=== PATIENT | male | born 1960 | race Caucasian/White ===

== ENCOUNTER → 2016-08-30 | Outpatient (CLI) | payer MEDICARE ==
[~2016-08-30] MED LIST: ACARBOSE100 MG PO; ASPIR-TRIN325 MG PO; CYMBALTA60 MG PO; DIOVAN40 MG PO; FENOFIBRATE160 MG PO; IBUPROFEN400 MG PO; LEVEMIR100 UNIT/1 SQ; LOPRESSOR 25 MG25 MG PO; LORTAB 7.5-3251 EACH PO; LYRICA50 MG PO; METFORMIN HCL1000 MG PO; NOVOLOG FL100 UNIT/1 SC; OMEPRAZOLE20 M1 PO; SIMVASTATIN40 MG PO
== END ==
LOC: RAD 10:16
DX: M25.512 Pain in left shoulder (principal); M51.9 Unspecified thoracic, thoracolumbar and lumbosacral intervertebral disc disorder; M47.812 Spondylosis without myelopathy or radiculopathy, cervical region; M51.34 Other intervertebral disc degeneration, thoracic region; M25.78 Osteophyte, vertebrae; M47.816 Spondylosis without myelopathy or radiculopathy, lumbar region
CPT/HCPCS: 72050; 72072; 72110; 73030

== ENCOUNTER 2016-11-27 13:40 | Inpatient (IN) | payer MEDICARE ==
[~2016-11-27] VITALS: Ht 182.9 cm; Wt 119.7 kg
[2016-11-27 14:47] LABS: HEMOGLOBIN 11.6 gm/dl (14.0-17.5); RED BLOOD COUNT 4.14 M/UL (4.20-5.50); WHITE BLOOD COUNT 17.8 K/UL (4.5-11.0)
[2016-11-27 15:06] LABS: BUN/CREATININE RATIO 14 (0-10)
[2016-11-27] MEDS ORDERED: SIMVASTATIN40 MG PO (19:08)
[2016-11-27] MEDS ORDERED: METFORMIN HCL1000 MG PO (19:09)
[2016-11-27] MEDS ORDERED: DIOVAN40 MG PO (19:09)
[2016-11-27] MEDS ORDERED: ACARBOSE100 MG PO (19:10)
[2016-11-27] MEDS ORDERED: CYMBALTA60 MG PO (19:10)
[2016-11-27] MEDS ORDERED: LORTAB 7.5-3251 EACH PO (19:11)
[2016-11-27] MEDS ORDERED: LYRICA50 MG PO (19:11)
[2016-11-27] MEDS ORDERED: OMEPRAZOLE20 M1 PO (19:12)
[2016-11-27] MEDS ORDERED: IBUPROFEN400 MG PO (19:12)
[2016-11-27] MEDS ORDERED: ASPIR-TRIN325 MG PO (19:13)
[2016-11-27] MEDS ORDERED: FENOFIBRATE160 MG PO (19:13)
[2016-11-27] MEDS ORDERED: LEVEMIR100 UNIT/1 SQ (19:14)
[2016-11-27] MEDS ORDERED: LOPRESSOR 25 MG25 MG PO (19:15)
[2016-11-27] MEDS ORDERED: NOVOLOG FL100 UNIT/1 SC (19:16)
--- NOTE | 2016-11-27 19:49 | NUR ---
NOTIFIED DR BAUTISTA OF CONSULT WRITTEN BY DR MARTÍNEZ. DR BAUTISTA STATES THAT "IF PATIENT'S WOUND IS ON THE FOOT OR ANKLE AT ALL , YOU DONT NEED TO CONSULT ME, CONSULT ORTHO OR PODIATRY."
--- NOTE | 2016-11-27 19:54 | NUR ---
NOTIFIED DR VIERA (ORTHO) OF PATIENT CONSULT, STATES TO NOTIFY IN PODIATRY IN THE AM WITH DR KIRAN.
[2016-11-28 06:38] LABS: HEMOGLOBIN 10.6 gm/dl (14.0-17.5); RED BLOOD COUNT 3.76 M/UL (4.20-5.50); WHITE BLOOD COUNT 15.4 K/UL (4.5-11.0)
[2016-11-28 06:51] LABS: BUN/CREATININE RATIO 18 (0-10)
[2016-11-29 05:22] LABS: HEMOGLOBIN 10.3 gm/dl (14.0-17.5); RED BLOOD COUNT 3.66 M/UL (4.20-5.50)
[2016-11-29 05:47] LABS: BUN/CREATININE RATIO 17 (0-10)
[2016-11-30 05:40] LABS: HEMOGLOBIN 9.8 gm/dl (14.0-17.5); RED BLOOD COUNT 3.56 M/UL (4.20-5.50); WHITE BLOOD COUNT 12.1 K/UL (4.5-11.0)
[2016-11-30 06:10] LABS: BUN/CREATININE RATIO 15 (0-10)
[2016-12-01 04:42] LABS: HEMOGLOBIN 9.5 gm/dl (14.0-17.5); RED BLOOD COUNT 3.47 M/UL (4.20-5.50); WHITE BLOOD COUNT 12.1 K/UL (4.5-11.0)
[2016-12-01 05:18] LABS: BUN/CREATININE RATIO 16 (0-10)
[2016-12-02 05:56] LABS: HEMOGLOBIN 9.9 gm/dl (14.0-17.5); WHITE BLOOD COUNT 10.6 K/UL (4.5-11.0)
[2016-12-02 06:08] LABS: BUN/CREATININE RATIO 15 (0-10)
[2016-12-03 05:23] LABS: HEMOGLOBIN 9.3 gm/dl (14.0-17.5); RED BLOOD COUNT 3.4 M/UL (4.20-5.50); WHITE BLOOD COUNT 8.7 K/UL (4.5-11.0)
[2016-12-03 05:34] LABS: BUN/CREATININE RATIO 14 (0-10)
[2016-12-04 05:05] LABS: HEMOGLOBIN 9.4 gm/dl (14.0-17.5); RED BLOOD COUNT 3.5 M/UL (4.20-5.50)
[2016-12-04 05:30] LABS: BUN/CREATININE RATIO 13 (0-10)
[2016-12-05 05:07] LABS: HEMOGLOBIN 9.8 gm/dl (14.0-17.5); RED BLOOD COUNT 3.66 M/UL (4.20-5.50)
[2016-12-05 05:10] LABS: WHITE BLOOD COUNT 9.2 K/UL (4.5-11.0)
[2016-12-05 05:12] LABS: BUN/CREATININE RATIO 10 (0-10)
--- NOTE | 2016-12-05 14:20 | NUR ---
SPOKEN TO ADMISSION NURSE AT [facility] AND SHE REQUESTED NOT TO PERFORM WOUND CARE D/T PICTURES WILL BE TAKEN AND THAT SHE WILL PERFORM WOUND CARE WHEN PATIENT ADMITTED TO THEIR SERVICES
== END 2016-12-05 15:18 | disposition other institution (70) | DRG 854 ==
LOC: ER1 13:40 → PROG CARE 16:17 → ZEROF 16:17 → PROG CARE 17:28 → M/S 17:28 → PROG CARE 19:45 → M/S 11-28 20:05
PROVIDERS: Emergency Medicine; Internal Medicine; Physician Assistant; Physician Assistant Medical; Podiatrist Foot & Ankle Surgery; ADMIT Internal Medicine
PROC: B41D1ZZ Fluoroscopy of Aorta and Bilateral Lower Extremity Arteries using Low Osmolar Contrast (ICD-10-PCS; 2016-11-30)
PROC: 0JBQ0ZZ Excision of Right Foot Subcutaneous Tissue and Fascia, Open Approach (ICD-10-PCS; principal; 2016-12-01 13:15)
PROC: 0JBQ0ZZ Excision of Right Foot Subcutaneous Tissue and Fascia, Open Approach (ICD-10-PCS; 2016-12-04)
PROC: 3E0234Z Introduction of Serum, Toxoid and Vaccine into Muscle, Percutaneous Approach (ICD-10-PCS; 2016-12-05)
DX: A41.9 Sepsis, unspecified organism (principal); L03.115 Cellulitis of right lower limb; E87.1 Hypo-osmolality and hyponatremia; M00.9 Pyogenic arthritis, unspecified; L97.319 Non-pressure chronic ulcer of right ankle with unspecified severity; L02.415 Cutaneous abscess of right lower limb; L97.519 Non-pressure chronic ulcer of other part of right foot with unspecified severity; S92.501A Displaced unspecified fracture of right lesser toe(s), initial encounter for closed fracture; I70.233 Atherosclerosis of native arteries of right leg with ulceration of ankle; I70.235 Atherosclerosis of native arteries of right leg with ulceration of other part of foot; B95.62 Methicillin resistant Staphylococcus aureus infection as the cause of diseases classified elsewhere; E11.65 Type 2 diabetes mellitus with hyperglycemia; E11.42 Type 2 diabetes mellitus with diabetic polyneuropathy; T25.0 Burn of unspecified degree of ankle and foot; T31.0 Burns involving less than 10% of body surface; V00-Y99 External causes of morbidity; Y93.I9 Activity, other involving external motion; Y92.007 Garden or yard of unspecified non-institutional (private) residence as the place of occurrence of the external cause; I25.10 Atherosclerotic heart disease of native coronary artery without angina pectoris; R51 Headache; R00.0 Tachycardia, unspecified; I10 Essential (primary) hypertension; E78.5 Hyperlipidemia, unspecified; Z91.81 History of falling; M25.562 Pain in left knee; K21.9 Gastro-esophageal reflux disease without esophagitis; Z68.35 Body mass index [BMI] 35.0-35.9, adult; Z82.49 Family history of ischemic heart disease and other diseases of the circulatory system; Z83.3 Family history of diabetes mellitus; Z88.0 Allergy status to penicillin; Z79.4 Long term (current) use of insulin; Z72.3 Lack of physical exercise; Z23 Encounter for immunization
CPT/HCPCS: 36200; 36221; 36415; 70450; 71010; 73560; 73610; 73630; 75630; 80048; 80053; 80202; 82009; 82550; 82553; 82728; 82803; 82962; 83036; 83540; 83550; 83605; 83735; 83874; 84132; 84443; 84484; 85025; 85027; 85610; 86140; 87040; 87070; 87077; 87186; 87205; 93005; 93926; 93971; C1894; G0008; J1644; J1650; J1815; J1885; J2185; J2250; J2405; J2795; J3010; J3370; J7030; J7040; J7050; J7070; J7120; Q2039; Q9965

== ENCOUNTER 2020-03-27 19:42 | Observation (INO) | payer MEDICARE ==
[~2020-03-27] VITALS: Ht 180.3 cm; Wt 116.1 kg
[~2020-03-27 19:42] MED LIST changes: +ABILIFY 2 MG TAB2 MG PO; +AMLODIPINE BESYL5 MG PO; +ANCEF 1 GM IV AD1 GM IV; +ASPIR-LOW81 MG PO; +ASPIRIN 325MG325 MG PO; +ATORVASTATIN CA20 MG PO; +BENICAR20 MG PO; +CRESTOR 10 MG T10 MG PO; +CRESTOR20 MG PO; +CYCLOBENZAPRINE10 MG PO; +DULCOLAX5 MG PO; +FERROUS SULFAT325 M2 PO; +FLOMAX 0.4 MG0.4 MG PO; +HYDROCODON-ACE1 EAC2 PO; +LANTUS INS100 UTS/M1 SQ; +LEVEMIR 10100 UNITS/ SC; +LOPRESSOR 50 MG50 MG PO; +LOPRESSOR50 MG PO; +LORTAB 5-325 M1 EACH PO; +NEURONTIN 300300 MG PO; +NEURONTIN600 MG PO; +NORCO 7.5-3251 EACH PO; +OZEMPIC0.25 MG/0. SQ; +PHENERGAN 12.12.5 M1 PO; +POLYETHYLENE GL17 GM PO; +PROSCAR5 MG PO; +REMERON15 MG PO; +SANTYL OINT 3030 GM TOP; +THERAGRAN M TAB1 EA PO; +TRESIBA FL100 UNIT/1 SC; +TRESIBA FL100 UNIT/1 SQ; +VITAMIN B-12100 MCG PO; +XIGDUO XR 5 MG1 EACH PO
[2020-03-27 20:25] LABS: HEMOGLOBIN 11.2 gm/dl (14.0-17.5); RED BLOOD COUNT 4.05 M/UL (4.20-5.50); WHITE BLOOD COUNT 6.7 K/UL (4.5-11.0)
[2020-03-27 21:31] LABS: BUN/CREATININE RATIO 10 (0-10)
[2020-03-28] MEDS ORDERED: CRESTOR20 MG PO (02:26)
[2020-03-28] MEDS ORDERED: FAMOTIDINE20 MG PO (02:27)
[2020-04-02] MEDS ORDERED: HYDROCODON-ACE1 EAC2 PO (15:07)
[2020-04-02] MEDS ORDERED: NEURONTIN600 MG PO (15:07)
[2020-04-02] MEDS ORDERED: LOPRESSOR50 MG PO (15:41)
== END 2020-04-02 16:57 | disposition home or self-care (01) ==
LOC: ER1 19:42 → MED SURG 4 03-28 02:04 → CDU 03-28 02:04 → MED SURG 4 03-28 03:49
PROVIDERS: Family Medicine; Internal Medicine; Physician Assistant; Physician Assistant Medical; ADMIT Internal Medicine
DX: R11.2 Nausea with vomiting, unspecified (principal); E87.6 Hypokalemia; R41.82 Altered mental status, unspecified; I13.0 Hypertensive heart and chronic kidney disease with heart failure and stage 1 through stage 4 chronic kidney disease, or unspecified chronic kidney disease; I50.32 Chronic diastolic (congestive) heart failure; N18.30 Chronic kidney disease, stage 3 unspecified; E11.40 Type 2 diabetes mellitus with diabetic neuropathy, unspecified; D63.1 Anemia in chronic kidney disease; N40.0 Benign prostatic hyperplasia without lower urinary tract symptoms; Z99.3 Dependence on wheelchair; Z88.0 Allergy status to penicillin; Z86.73 Personal history of transient ischemic attack (TIA), and cerebral infarction without residual deficits; Z20.822 Contact with and (suspected) exposure to COVID-19
CPT/HCPCS: 36415; 36600; 70450; 71045; 80048; 80053; 80307; 81001; 82140; 82550; 82553; 82803; 82962; 83735; 83874; 83880; 84132; 84484; 85025; 85610; 86140; 93005; 96372; 96374; 96375; 96376; 97110; 97110-GP-CQ; 97116-GP-CQ; 97162; 97166; 97530-GP-CQ; 99285; C9113; G0378; G0480; Q9967; U0002

== ENCOUNTER 2020-06-23 10:03 | Emergency (ER) | payer MEDICARE ==
[~2020-06-23 10:03] MED LIST changes: +FAMOTIDINE20 MG PO
== END 2020-06-23 15:15 | disposition home or self-care (01) ==
LOC: ER1 10:03
DX: Z04.3 Encounter for examination and observation following other accident (principal); E78.5 Hyperlipidemia, unspecified; I12.9 Hypertensive chronic kidney disease with stage 1 through stage 4 chronic kidney disease, or unspecified chronic kidney disease; E11.22 Type 2 diabetes mellitus with diabetic chronic kidney disease; N18.9 Chronic kidney disease, unspecified; Z86.73 Personal history of transient ischemic attack (TIA), and cerebral infarction without residual deficits; Z88.0 Allergy status to penicillin; W19.XXXA Unspecified fall, initial encounter
CPT/HCPCS: 99284

== ENCOUNTER 2020-06-24 12:54 | Observation (INO) | payer MEDICARE ==
[~2020-06-24] VITALS: Ht 182.9 cm; Wt 112.9 kg
[2020-06-24 14:03] LABS: HEMOGLOBIN 13.3 gm/dl (14.0-17.5); RED BLOOD COUNT 4.66 M/UL (4.20-5.50); WHITE BLOOD COUNT 9.4 K/UL (4.5-11.0)
[2020-06-24 14:20] LABS: BUN/CREATININE RATIO 14 (0-10)
[2020-06-25] MEDS ORDERED: TRESIBA FL100 UNIT/1 SQ (17:24)
[2020-06-25] MEDS ORDERED: HYDROCODON-ACE1 EAC2 PO (17:24)
[2020-06-25] MEDS ORDERED: HUMALOG 10100 UNITS/ SC (17:24)
[2020-06-25] MEDS ORDERED: NEURONTIN600 MG PO (17:24)
--- NOTE | 2020-06-28 16:07 | NUR ---
PATIENT REPEATEDLY ASKS TO SEE FAMILY. RN REINFORCED TEACHING BY EXPLAINING TO PATIENT THAT HIS PRECAUTIONS WERE FOR HIS SAFETY.
[2020-06-29 06:04] LABS: RED BLOOD COUNT 3.93 M/UL (4.20-5.50)
[2020-06-29 06:16] LABS: HEMOGLOBIN 10.9 gm/dl (14.0-17.5)
--- NOTE | 2020-06-30 10:56 | NUR ---
PATIENT ON 1:1 SITTER
--- NOTE | 2020-06-30 13:38 | NUR ---
[facility] EVALUATION DONE AND WILL CALL BACK OF THE RESULT OF THE EVALUATION.
[2020-06-30] MEDS ORDERED: MACROBID 100 M100 MG PO (14:29)
== END 2020-06-30 17:55 | disposition home or self-care (01) ==
LOC: ER1 12:54 → M/S 21:55 → CDU 21:55 → M/S 06-25 14:11
PROVIDERS: Internal Medicine; Physician Assistant; ADMIT Internal Medicine
DX: F32.9 Major depressive disorder, single episode, unspecified (principal); R45.851 Suicidal ideations; F41.9 Anxiety disorder, unspecified; N30.00 Acute cystitis without hematuria; I11.0 Hypertensive heart disease with heart failure; I50.22 Chronic systolic (congestive) heart failure; E11.9 Type 2 diabetes mellitus without complications; R77.8 Other specified abnormalities of plasma proteins; N40.0 Benign prostatic hyperplasia without lower urinary tract symptoms; E78.5 Hyperlipidemia, unspecified; Z20.822 Contact with and (suspected) exposure to COVID-19; Z91.5 Personal history of self-harm; Z79.4 Long term (current) use of insulin; Z79.899 Other long term (current) drug therapy; Z79.82 Long term (current) use of aspirin; Z99.3 Dependence on wheelchair; Z86.73 Personal history of transient ischemic attack (TIA), and cerebral infarction without residual deficits; Z88.0 Allergy status to penicillin
CPT/HCPCS: 36415; 70450; 80048; 80053; 80307; 81001; 82962; 85025; 85027; 87077; 87086; 87186; 94760; 96365; 96372; 96375; 96376; 99285; G0378; G0480; J0696; J1650; J3370; J7070; U0002

== ENCOUNTER 2020-07-02 20:16 | Emergency (ER) | payer MEDICARE ==
[~2020-07-02] VITALS: Ht 182.9 cm; Wt 112.9 kg
[~2020-07-02 20:16] MED LIST changes: +HUMALOG 10100 UNITS/ SC; +MACROBID 100 M100 MG PO
[2020-07-02 20:44] LABS: HEMOGLOBIN 12.2 gm/dl (14.0-17.5); RED BLOOD COUNT 4.38 M/UL (4.20-5.50); WHITE BLOOD COUNT 7.4 K/UL (4.5-11.0)
== END 2020-07-04 13:24 | disposition short-term general hospital (02) ==
LOC: ER1 20:16
PROVIDERS: Physician Assistant
DX: R45.851 Suicidal ideations (principal); E11.65 Type 2 diabetes mellitus with hyperglycemia; E78.5 Hyperlipidemia, unspecified; I25.10 Atherosclerotic heart disease of native coronary artery without angina pectoris; Z88.0 Allergy status to penicillin; Z86.73 Personal history of transient ischemic attack (TIA), and cerebral infarction without residual deficits; Z20.822 Contact with and (suspected) exposure to COVID-19
CPT/HCPCS: 0240U; 71045; 80053; 80307; 81001; 82962; 85025; 93005; 96374; 96375; 99285; G0480

== ENCOUNTER 2020-07-13 17:28 | Emergency (ER) | payer MEDICARE | END 2020-07-14 08:45 | disposition home or self-care (01) | LOC: ER1 17:28 | DX: Z02.2 Encounter for examination for admission to residential institution (principal) | CPT/HCPCS: 93005; 99284 ==

== ENCOUNTER 2020-08-15 16:53 | Emergency (ER) | payer MEDICARE ==
[~2020-08-15] VITALS: Ht 182.9 cm; Wt 110.2 kg
[2020-08-15 17:46] LABS: HEMOGLOBIN 12.5 gm/dl (14.0-17.5); RED BLOOD COUNT 4.33 M/UL (4.20-5.50); WHITE BLOOD COUNT 7.7 K/UL (4.5-11.0)
[2020-08-15 18:11] LABS: BUN/CREATININE RATIO 9 (0-10)
[2020-08-17 20:05] LABS: HEMOGLOBIN 11.9 gm/dl (14.0-17.5); RED BLOOD COUNT 4.19 M/UL (4.20-5.50); WHITE BLOOD COUNT 8.2 K/UL (4.5-11.0)
== END 2020-08-19 13:00 | disposition short-term general hospital (02) ==
LOC: ER1 16:53
PROVIDERS: Emergency Medicine; Family Medicine
DX: R45.851 Suicidal ideations (principal); I12.9 Hypertensive chronic kidney disease with stage 1 through stage 4 chronic kidney disease, or unspecified chronic kidney disease; N18.9 Chronic kidney disease, unspecified; E11.22 Type 2 diabetes mellitus with diabetic chronic kidney disease; Z20.822 Contact with and (suspected) exposure to COVID-19
CPT/HCPCS: 80053; 80061; 80307; 81001; 82550; 82553; 82962; 83735; 83874; 84484; 85025; 85610; 85730; 93005; 97162; 99285; G0480; U0002

== ENCOUNTER 2020-10-12 12:52 | Emergency (ER) | payer MEDICARE ==
[2020-10-12 14:14] LABS: HEMOGLOBIN 12.8 gm/dl (14.0-17.5); RED BLOOD COUNT 4.43 M/UL (4.20-5.50); WHITE BLOOD COUNT 10.6 K/UL (4.5-11.0)
== END 2020-10-12 23:09 | disposition home or self-care (01) ==
LOC: ER1 12:52
PROVIDERS: Emergency Medicine
DX: E11.65 Type 2 diabetes mellitus with hyperglycemia (principal); I10 Essential (primary) hypertension; Z88.0 Allergy status to penicillin; Z91.14 Patient's other noncompliance with medication regimen
CPT/HCPCS: 80053; 81001; 82009; 82962; 83690; 83735; 85025; 99284

== ENCOUNTER 2020-12-07 17:52 | Inpatient (IN) | payer OTHER, MEDICARE ==
[~2020-12-07] VITALS: Ht 182.9 cm; Wt 104.3 kg
[2020-12-07 18:23] LABS: HEMOGLOBIN 12.5 gm/dl (14.0-17.5); RED BLOOD COUNT 4.34 M/UL (4.20-5.50); WHITE BLOOD COUNT 8.8 K/UL (4.5-11.0)
[2020-12-07] MEDS ORDERED: NORVASC10 MG PO (23:15)
[2020-12-07] MEDS ORDERED: ZOLOFT100 MG PO (23:15)
[2020-12-07] MEDS ORDERED: LOPRESSOR 25 MG25 MG PO (23:16)
[2020-12-08 08:02] LABS: HEMOGLOBIN 12.1 gm/dl (14.0-17.5); RED BLOOD COUNT 4.21 M/UL (4.20-5.50); WHITE BLOOD COUNT 10.3 K/UL (4.5-11.0)
[2020-12-09 03:30] LABS: RED BLOOD COUNT 3.87 M/UL (4.20-5.50); WHITE BLOOD COUNT 10.7 K/UL (4.5-11.0)
--- NOTE | 2020-12-09 04:41 | NUR ---
PT UNABLE TO VOID. NOTIFIED DR YI . RECIEVED ORDERS. STRAIGHT CATHED PT ORDERED RECIEVED 700ML IN UOP. WILL CONTINUE TO MONITOR.
--- NOTE | 2020-12-09 16:13 | NUR ---
1518 - RN PERFORMED BLADDER SCAN ONPATIENT D/T PATIENT STATING THAT HE MUST BE STRAIGHT CATHED IN ORDER TO VOID AT TIMES. BLADDER SCAN REVEALED ONLY 90 ML OF URINE IN BLADDER. PATIENT WAS ALSO INCONT. OF URINE AT APPROXIMATELY 1245.
[2020-12-10 07:11] LABS: WHITE BLOOD COUNT 8.8 K/UL (4.5-11.0)
[2020-12-10 07:15] LABS: HEMOGLOBIN 8.4 gm/dl (14.0-17.5)
[2020-12-10 12:12] LABS: HEMOGLOBIN 8.5 gm/dl (14.0-17.5)
[2020-12-10 16:43] LABS: HEMOGLOBIN 8.6 gm/dl (14.0-17.5)
[2020-12-10 22:57] LABS: HEMOGLOBIN 8.9 gm/dl (14.0-17.5)
[2020-12-11 06:55] LABS: HEMOGLOBIN 8.7 gm/dl (14.0-17.5); RED BLOOD COUNT 3.05 M/UL (4.20-5.50)
[2020-12-12 05:50] LABS: HEMOGLOBIN 8.1 gm/dl (14.0-17.5); RED BLOOD COUNT 2.89 M/UL (4.20-5.50); WHITE BLOOD COUNT 7.7 K/UL (4.5-11.0)
[2020-12-13 06:50] LABS: HEMOGLOBIN 8.4 gm/dl (14.0-17.5); RED BLOOD COUNT 2.95 M/UL (4.20-5.50); WHITE BLOOD COUNT 8.3 K/UL (4.5-11.0)
[2020-12-14 06:30] LABS: RED BLOOD COUNT 2.86 M/UL (4.20-5.50); WHITE BLOOD COUNT 8.4 K/UL (4.5-11.0)
[2020-12-15 06:22] LABS: HEMOGLOBIN 7.6 gm/dl (14.0-17.5); RED BLOOD COUNT 2.69 M/UL (4.20-5.50); WHITE BLOOD COUNT 8.3 K/UL (4.5-11.0)
[2020-12-15] MEDS ORDERED: FERROUS SULFAT325 M2 PO (16:33)
[2020-12-15] MEDS ORDERED: TYLOPHEN500 MG PO (16:33)
[2020-12-16 04:34] LABS: HEMOGLOBIN 7.6 gm/dl (14.0-17.5); RED BLOOD COUNT 2.72 M/UL (4.20-5.50)
[2020-12-17 07:05] LABS: HEMOGLOBIN 7.9 gm/dl (14.0-17.5); RED BLOOD COUNT 2.81 M/UL (4.20-5.50); WHITE BLOOD COUNT 7.8 K/UL (4.5-11.0)
[2020-12-18 07:47] LABS: RED BLOOD COUNT 2.59 M/UL (4.20-5.50); WHITE BLOOD COUNT 8.1 K/UL (4.5-11.0)
--- NOTE | 2020-12-18 09:40 | NUR ---
0810- NOTIFIED DR CONTRERAS OF CRITICAL HEMOGLOBIN OF 7.0. NEW ORDERS NOTED.
[2020-12-19 12:27] LABS: HEMOGLOBIN 9.6 gm/dl (14.0-17.5); WHITE BLOOD COUNT 9.4 K/UL (4.5-11.0)
[2020-12-19 12:38] LABS: RED BLOOD COUNT 3.41 M/UL (4.20-5.50)
[2020-12-20 07:34] LABS: HEMOGLOBIN 8.1 gm/dl (14.0-17.5); WHITE BLOOD COUNT 7.4 K/UL (4.5-11.0)
[2020-12-20 07:38] LABS: RED BLOOD COUNT 2.87 M/UL (4.20-5.50)
[2020-12-21 05:30] LABS: HEMOGLOBIN 8.4 gm/dl (14.0-17.5); RED BLOOD COUNT 2.95 M/UL (4.20-5.50); WHITE BLOOD COUNT 7.6 K/UL (4.5-11.0)
--- NOTE | 2020-12-21 17:03 | NUR ---
perform wound care to left arm. applied xerofoam on 3 wounds, skin open, 4x4 and wrap with gauze. pateint hector well.
[2020-12-22 06:41] LABS: RED BLOOD COUNT 3.22 M/UL (4.20-5.50); WHITE BLOOD COUNT 7.5 K/UL (4.5-11.0)
== END 2020-12-23 12:35 | DRG 481 ==
LOC: ER1 17:52 → CDU 20:12 → M/S 20:12
PROVIDERS: Internal Medicine; Orthopaedic Surgery; Physician Assistant; ADMIT Internal Medicine
PROC: 0QS606Z Reposition Right Upper Femur with Intramedullary Internal Fixation Device, Open Approach (ICD-10-PCS; principal; 2020-12-08 12:00)
DX: S72.141A Displaced intertrochanteric fracture of right femur, initial encounter for closed fracture (principal); D62 Acute posthemorrhagic anemia; N17.9 Acute kidney failure, unspecified; I50.22 Chronic systolic (congestive) heart failure; I13.0 Hypertensive heart and chronic kidney disease with heart failure and stage 1 through stage 4 chronic kidney disease, or unspecified chronic kidney disease; F11.20 Opioid dependence, uncomplicated; Z20.822 Contact with and (suspected) exposure to COVID-19; D63.1 Anemia in chronic kidney disease; F32.9 Major depressive disorder, single episode, unspecified; N40.0 Benign prostatic hyperplasia without lower urinary tract symptoms; E11.65 Type 2 diabetes mellitus with hyperglycemia; N18.30 Chronic kidney disease, stage 3 unspecified; E78.5 Hyperlipidemia, unspecified; H54.61 Unqualified visual loss, right eye, normal vision left eye; F41.9 Anxiety disorder, unspecified; M47.896 Other spondylosis, lumbar region; E11.22 Type 2 diabetes mellitus with diabetic chronic kidney disease; K59.00 Constipation, unspecified; R53.81 Other malaise; Z86.73 Personal history of transient ischemic attack (TIA), and cerebral infarction without residual deficits; Z79.4 Long term (current) use of insulin; Z91.14 Patient's other noncompliance with medication regimen; Z99.3 Dependence on wheelchair; Z74.01 Bed confinement status; Z88.0 Allergy status to penicillin; Z88.8 Allergy status to other drugs, medicaments and biological substances; Z82.49 Family history of ischemic heart disease and other diseases of the circulatory system; V89.2XXA Person injured in unspecified motor-vehicle accident, traffic, initial encounter; Z90.49 Acquired absence of other specified parts of digestive tract
CPT/HCPCS: 36415; 36430; 71045; 72170; 73502; 73552; 76000; 80048; 80053; 82436; 82550; 82553; 82607; 82728; 82746; 82962; 83540; 83550; 83735; 83874; 83880; 84100; 84133; 84300; 84484; 85014; 85018; 85025; 85027; 85610; 85730; 86850; 86900; 86901; 86920; 89050; 93005; 93926; 93970; 96374; 96375; 96376; 97110; 97110-GP-CQ; 97116; 97162; 97166; 97530; 97530-GP-CQ; 97535; 99285; A6212; C1713; J0690; J1100; J1170; J1650; J1756; J2001; J2270; J2405; J2704; J2710; J3010; J7030; J7120; P9016; U0002